=== PATIENT | female | born 2005 | race Caucasian/White ===

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

== ENCOUNTER 2024-05-02 19:06 | Emergency (ER) | payer OTHER ==
[~2024-05-02] VITALS: Ht 160 cm; Wt 57.1 kg
[2024-05-02 19:18] VITALS: BP 138/82
== END 2024-05-02 19:35 | disposition home or self-care (01) ==
LOC: ER 19:06
DX: S00.522A Blister (nonthermal) of oral cavity, initial encounter (principal); X58.XXXA Exposure to other specified factors, initial encounter
CPT/HCPCS: 99282

== ENCOUNTER → 2024-07-07 | Outpatient (CLI) | payer OTHER | LOC: MOI RAD 19:00 → LAB 19:00 → LAB SHORT 19:00 | DX: N89.8 Other specified noninflammatory disorders of vagina (principal) | CPT/HCPCS: 87070; 87077; 87147; 87186; 87205 ==

== ENCOUNTER 2025-06-16 10:50 | Inpatient (IN) | payer OTHER ==
[~2025-06-16] VITALS: Ht 162.6 cm; Wt 81.8 kg
[2025-06-16] VITALS (29 sets, daily range): BP systolic 103–152; BP diastolic 50–94
[2025-06-16] MEDS ORDERED: FentaNYL Citrate 50 MCG/ML 2 ML Injection IV PRN (11:00)
[2025-06-16] MEDS ORDERED: Methylergonovine Maleate 0.2MG / ML 1ML Amp IM PRN ×2 (11:05→21:40)
[2025-06-16] MEDS ORDERED: Tranexamic Acid 100 ML IV SCH (11:05)
[2025-06-16] MEDS ORDERED: FentaNYL 2mcg/ml-Bup 0.1% Epd 250 ML EPI PRN (11:05)
[2025-06-16] MEDS ORDERED: Oxytocin 10 Unit / ML Vial IM PRN (11:05)
[2025-06-16] MEDS ORDERED: OXYTOCIN/RINGER'S LACTATE 500 ML IV PRN (11:05)
[2025-06-16] MEDS ORDERED: ePHEDrine Sulfate 50 MG/ML 1ML Injection XX PRN (11:05)
[2025-06-16] MEDS ORDERED: Carboprost Tromethamine 250 MCG/ML 1ML Amp IM PRN (11:05)
[2025-06-16] MEDS ORDERED: Penicillin G Potassium 5,000,000 UNITS in NS 250 ML IV ONE (11:05)
[2025-06-16] MEDS ORDERED: Ondansetron HCl 2 MG / ML 2ML Vial IV PRN (11:05)
[2025-06-16] MEDS ORDERED: PRENATAL TABLE1 EAC2 PO (11:16)
[2025-06-16 11:22] LABS: BASOPHILS ABSOLUTE AUTO 0.06 K/mm3 (0.00-0.23); BASOPHILS PERCENT AUTO 0 % (0-2); EOSINOPHILS ABSOLUTE AUTO 0.16 K/mm3 (0.00-0.68); EOSINOPHILS PERCENT AUTO 1 % (0-6); Hematocrit 33.0 % (33.0-51.0); Hemoglobin 11.1 g/dL (11.5-16.0); IMMATURE GRAN ABSOLUTE AUTO 0.09 K/mm3 (0.00-0.10); IMMATURE GRAN PERCENT AUTO 1 % (0-1); LYMPHOCYTES ABSOLUTE AUTO 1.78 K/mm3 (0.84-5.20); LYMPHOCYTES PERCENT AUTO 13 % (21-46); MONOCYTES ABSOLUTE AUTO 0.69 K/mm3 (0.16-1.47); MONOCYTES PERCENT AUTO 5 % (4-13); Mean Corpuscular HGB Conc 33.6 g/dL (31.5-36.5); Mean Corpuscular Volume 81 fL (80-100); NEUTROPHILS ABSOLUTE AUTO 11.15 K/mm3 (1.96-9.15); NEUTROPHILS PERCENT AUTO 80 % (41-73); NRBC ABSOLUTE 0.00 K/mm3 (0.00-0.02); NRBC Auto 0.0 /100 WBC (0.0-0.2); Platelet Count 259 K/mm3 (150-400); RDW Coefficient Variation 13.3 % (11.7-14.2); RDW Standard Deviation 38.9 fL (35.1-46.3)
--- NOTE | 2025-06-16 13:31 | NUR ---
THIS RN DISCUSSED PT'S HISTORY OF SUICIDAL IDEATION WITH PT. SHE REPORTS THAT THIS THOUGHT OF WANTING TO HARM HERSELF WAS >4 YEARS AGO AND SHE HAS NO THOUGHTS OF SELF HARM RECENTLY. RN EXPRESSED THAT PT MAY BE AT HIGHER RISK FOR PPD, AND ENCOURAGED PT TO MAINTAIN OPEN CONVERSATION WITH HEALTHCARE PROVIDER AND ENCOURAGED SEEKING A COUNSELER. REPORT GIVEN TO HERACLIO AT 1330 - HERACLIO AWARE OF PT'S HISTORY OF THOUGHTS OF SELF HARM AND TO DISCUSS WARNING SIGNS AND CARE ONCE PT IS .
[2025-06-16] MEDS ORDERED: Penicillin G Potassium 2,500,000 UNITS in Dextrose 5% 100 ML IV SCH (16:00)
[2025-06-16] MEDS ORDERED: Acetaminophen/Codeine 300-30 mg PO PRN (21:45)
[2025-06-16] MEDS ORDERED: OXYTOCIN/RINGER'S LACTATE 500 ML IV SCH (21:45)
[2025-06-16] MEDS ORDERED: OxyCODONE 5 mg/Acetamin 325 mg TABLET PO PRN (21:45)
[2025-06-16] MEDS ORDERED: Oxytocin 10 Unit / ML Vial IM ONE (21:45)
[2025-06-16] MEDS ORDERED: Ketorolac Tromethamine 30mg Vial IV PRN (21:50)
[2025-06-16] MEDS ORDERED: FLU VACC TS2025-26(6MOS UP)/PF 45 MCG/0.5 ML SYRINGE IM SCH (21:50)
[2025-06-16] MEDS ORDERED: Witch Hazel/Glycerin PADS TOP PRN (21:50)
[2025-06-16] MEDS ORDERED: Benzocaine Topical Anesthetic Spray 60GM TOP PRN (21:50)
[2025-06-17 03:53] VITALS: BP 115/66
[2025-06-17 06:49] LABS: BASOPHILS ABSOLUTE AUTO 0.05 K/mm3 (0.00-0.23); BASOPHILS PERCENT AUTO 0 % (0-2); EOSINOPHILS ABSOLUTE AUTO 0.04 K/mm3 (0.00-0.68); EOSINOPHILS PERCENT AUTO 0 % (0-6); Hematocrit 28.7 % (33.0-51.0); Hemoglobin 9.4 g/dL (11.5-16.0); IMMATURE GRAN ABSOLUTE AUTO 0.10 K/mm3 (0.00-0.10); IMMATURE GRAN PERCENT AUTO 1 % (0-1); LYMPHOCYTES ABSOLUTE AUTO 1.69 K/mm3 (0.84-5.20); LYMPHOCYTES PERCENT AUTO 9 % (21-46); MONOCYTES ABSOLUTE AUTO 1.37 K/mm3 (0.16-1.47); MONOCYTES PERCENT AUTO 8 % (4-13); Mean Corpuscular HGB Conc 32.8 g/dL (31.5-36.5); Mean Corpuscular Volume 82 fL (80-100); NEUTROPHILS ABSOLUTE AUTO 15.10 K/mm3 (1.96-9.15); NEUTROPHILS PERCENT AUTO 82 % (41-73); NRBC ABSOLUTE 0.00 K/mm3 (0.00-0.02); NRBC Auto 0.0 /100 WBC (0.0-0.2); Platelet Count 221 K/mm3 (150-400); RDW Coefficient Variation 13.4 % (11.7-14.2); RDW Standard Deviation 39.7 fL (35.1-46.3)
[2025-06-17 08:13] VITALS: BP 124/56
[2025-06-17] MEDS ORDERED: Prenatal Vit/FE Fumarate/FA 1 Tab PO SCH (09:00)
[2025-06-17 12:06] VITALS: BP 119/53
[2025-06-17] MEDS ORDERED: IBUP800 PO (13:40)
[2025-06-17] MEDS ORDERED: Magnesium Hydroxide Conc 10 ML UDC PO PRN (14:45)
[2025-06-17 20:09] VITALS: BP 124/83
== END 2025-06-17 23:00 | disposition home or self-care (01) | DRG 807 ==
LOC: OBS 10:50 → BC 10:50 → OBS 10:55 → BC 10:56
PROVIDERS: ADMIT Registered Nurse Community Health
PROC: 10E0XZZ Delivery of Products of Conception, External Approach (ICD-10-PCS; principal; 2025-06-16)
PROC: 0HQ9XZZ Repair Perineum Skin, External Approach (ICD-10-PCS; 2025-06-16)
PROC: 10907ZC Drainage of Amniotic Fluid, Therapeutic from Products of Conception, Via Natural or Artificial Opening (ICD-10-PCS; 2025-06-16)
PROC: 4A1HXCZ Monitoring of Products of Conception, Cardiac Rate, External Approach (ICD-10-PCS; 2025-06-16)
DX: O48.0 Post-term pregnancy (principal); Z37.0 Single live birth; Z3A.40 40 weeks gestation of pregnancy; O69.81X0 Labor and delivery complicated by cord around neck, without compression, not applicable or unspecified; O77.0 Labor and delivery complicated by meconium in amniotic fluid; O70.0 First degree perineal laceration during delivery; O99.824 Streptococcus B carrier state complicating childbirth
CPT/HCPCS: 36415; 59414; 85025; 86850; 86900; 86901; 99465; A9270; J1885; J2540; J2590; J7050; J7120